=== PATIENT | male | born 1990 | race American Indian/Alaskan Native ===

== ENCOUNTER 2017-01-21 17:46 | Emergency (ER) | payer SELFPAY ==
[2017-01-21 18:40] VITALS: BP 137/85
--- NOTE | 2017-01-21 22:48 | Emergency Department Report ---
HPI - General Chief Complaint: Sore Throat Time Seen by Provider: 01/21/17 22:24 - HPI HPI: Patient here complaining of sore throat since yesterday. He reports that it got worse yesterday. Denies any drooling. He is able to tolerate oral liquids without any difficulties. He said it hurts to swallow. He said he notices tonsils are big. Denies any nausea or vomiting. Denies any fever or chills. Denies any abdominal or chest pain. Denies any shortness of breath. Denies any stridor or wheezing. ED Past Medical Hx - Past Medical History Previous Medical History?: No - Surgical History Past Surgical History?: No - Family History Family history: no significant - Social History Smoking Status: Current Some Day Smoker Substance Use Type: Alcohol - Medications Home Medications: Home Medications Medication Instructions Recorded Confirmed Last Taken Type Amoxicillin [Amoxicillin TAB] 875 mg PO BID #20 tablet 01/22/17 Unknown Rx Ibuprofen [Motrin 800 MG tab] 800 mg PO ONCE PRN #15 tablet 01/22/17 Unknown Rx ED Review of Systems ROS: Stated complaint: SORE THROAT Other details as noted in HPI Comment: All other systems reviewed and negative Constitutional: denies: chills, fever Eyes: denies: eye pain, eye discharge ENT: throat pain. denies: ear pain, congestion Respiratory: no symptoms reported Cardiovascular: denies: chest pain, palpitations, edema, syncope Gastrointestinal: denies: abdominal pain, nausea, vomiting, diarrhea Musculoskeletal: denies: back pain, arthralgia Skin: denies: rash Neurological: denies: headache Physical Exam - Physical Exam Vital Signs: Vital Signs 01/21/17 18:37 Temperature 98 F Pulse Rate 87 Respiratory 18 Rate Blood Pressure 137/85 O2 Sat by Pulse 100 Oximetry General: This is a 26-year-old male well-nourished well-developed in no acute distress. Physical Exam: Head: Normocephalic atraumatic Mouth: Moist, positive pharyngeal erythema with erythema and enlarged tonsils at 2+. Uvula is midline and oral airway is patent. No facial swelling. No peritonsillar abscesses. No gingival enlargement noted. Nose: Nasal mucosa without congestion or erythema. Clear Drainage. Maxillary and frontal sinuses nontender to palpate Neck: Supple, no C-spine tenderness, no tracheal deviation. Nontender to palpate. Negative adenopathy Ears: Bilateral TMs pearly viramontes. Bilateral EAC without any redness swelling or drainage. Bilateral otitis nontender to palpate Abdomen: Soft, nontender to palpate in all quadrants, normal bowel sounds in all quadrant and negative CVA tenderness bilaterally. Eyes: Bilateral pupils equal and reactive to light, bilateral EOM intact. Bilateral sclera and conjunctiva without injection. Normal accommodation. No nystagmus Lungs: Clear to auscultate bilaterally no rhonchi wheezes or rales. Normal work of breathing extremity; No CCE. +2 pulses. No neurovascular compromise Cardiovascular: S1-S2, regular rate rhythm. No murmurs. Skin: clean Dry and intact no rash no lesions Psych: Normal mood and behavior ED Course Vital Signs 01/21/17 18:37 Temperature 98 F Pulse Rate 87 Respiratory 18 Rate Blood Pressure 137/85 O2 Sat by Pulse 100 Oximetry - Reevaluation(s) Reevaluation #1: 01/22/17 00:32 Patient given Mcdavid 325 mg 1 tablets in emergency room and Motrin 800 mg 1 tablet by mouth for sore throat which he voice help. He is able to tolerate oral liquids without any difficulties. ED Medical Decision Making - Lab Data Strep test is negative and culture pending - Medical Decision Making ED course: Pt here complaining of enlarged tonsils with red throat. Also complaining of a sore throat but it's been going on since yesterday and getting worse. Pt has no physical findings for peritonsillar abscess. He is able to tolerate oral liquids in emergency room without any difficulties. Strep test negative and cultures are pending. I discussed with patient results of stress test and informed him that he has tonsillitis and will be treated with antibiotics. Pt was given Mcdavid 5/325 one tablet along with Motrin 800 mg in emergency room for pain which she says helped his pain down to 2 out of 10. discharged home with his family with prescription for Motrin and amoxicillin Critical care attestation.: If time is entered above; I have spent that time in minutes in the direct care of this critically ill patient, excluding procedure time. ED Disposition Clinical Impression: Tonsillar enlargement, Acute erythematous tonsillitis Pharyngitis Qualifiers: Pharyngitis/tonsillitis etiology: unspecified etiology Qualified Code(s): J02.9 - Acute pharyngitis, unspecified Disposition: DISCHARGED TO HOME OR SELFCARE Is pt being admited?: No Does the pt Need Aspirin: No Condition: Stable Instructions: Tonsillitis (ED), Pharyngitis (ED) Additional Instructions: Please take medication as prescribed. Follow-up with ear nose and throat doctor her that you were referred to a near discharge information paperwork Please drink plenty of fluid. Prescriptions: Amoxicillin [Amoxicillin TAB] 875 mg PO BID #20 tablet Ibuprofen [Motrin 800 MG tab] 800 mg PO ONCE PRN #15 tablet PRN Reason: Sore Throat Referrals: KATIANA MARCELO MD [Staff Physician] - 2-3 Days [facility] [Outside] - 2-3 Days Forms: Accompanied Note, Work/School Release Form(ED)
[2017-01-21] MEDS ORDERED: NORCO 5/325 PO ONE (22:54)
[2017-01-21] MEDS ORDERED: MOTRIN PO ONE (22:54)
== END 2017-01-22 00:50 | disposition home or self-care (01) ==
LOC: ED 17:46
DX: J03.90 Acute tonsillitis, unspecified (principal); F17.200 Nicotine dependence, unspecified, uncomplicated; Z79.1 Long term (current) use of non-steroidal anti-inflammatories (NSAID); Z79.2 Long term (current) use of antibiotics
CPT/HCPCS: 87116; 87430; 99282

== ENCOUNTER 2022-03-06 22:09 | Emergency (ER) | payer SELFPAY ==
[2022-03-07 02:01] LABS: Basophils # (Auto) 0.1 K/mm3 (0.0-0.1); Basophils % (Auto) 1.2 % (0.0-1.8); Eosinophils # (Auto) 0.1 K/mm3 (0.0-0.4); Eosinophils % (Auto) 2.1 % (0.0-4.3); Hematocrit 44.8 % (35.5-45.6); Hemoglobin 15.2 gm/dl (11.8-15.2); Lymphocytes # (Auto) 2.6 K/mm3 (1.2-5.4); Lymphocytes % (Auto) 41.4 % (13.4-35.0); Mean Corpuscular HGB Conc 34 % (32-34); Mean Corpuscular Volume 90 fl (84-94); Monocytes # (Auto) 0.4 K/mm3 (0.0-0.8); Platelet Count 197 K/mm3 (140-440); Red Cell Distribution Width 13.5 % (13.2-15.2)
[2022-03-07 02:16] LABS: Alanine Aminotransferase 53 units/L (7-56); Albumin 4.2 g/dL (3.9-5); BUN/Creatinine Ratio 17; Blood Urea Nitrogen 15 mg/dL (9-20); Hemolysis Index 26
--- NOTE | 2022-03-07 03:40 | Emergency Department Report ---
ED Abdominal Pain HPI - General Chief Complaint: Abdominal Pain Stated Complaint: LEFT SIDE PAIN Time Seen by Provider: 03/07/22 00:58 Source: patient Mode of arrival: Ambulatory Limitations: No Limitations - History of Present Illness Initial Comments: Is a 31-year-old male who presents with bilateral flank pain x3 days. Patient denies fevers or chills no nausea or vomiting. Pain radiates to suprapubic. Patient does endorse urinary frequency urgency and dysuria. There is no hematuria. Patient denies discharge. No concern for STI. MD Complaint: flank pain - Related Data Previous Rx's Medication Instructions Recorded Last Taken Type Amoxicillin [Amoxicillin TAB] 875 mg PO BID #20 tablet 01/22/17 Unknown Rx Ibuprofen [Motrin 800 MG tab] 800 mg PO ONCE PRN #15 tablet 01/22/17 Unknown Rx Allergies Allergy/AdvReac Type Severity Reaction Status Date / Time No Known Allergies Allergy Unverified 01/21/17 22:48 ED Review of Systems ROS: Stated complaint: LEFT SIDE PAIN Other details as noted in HPI Constitutional: denies: chills, fever Eyes: denies: eye pain, eye discharge, vision change ENT: denies: ear pain, throat pain Respiratory: denies: cough, shortness of breath, wheezing Cardiovascular: as per HPI Endocrine: no symptoms reported Gastrointestinal: denies: abdominal pain, nausea, vomiting, diarrhea Genitourinary: urgency, dysuria, frequency. denies: hematuria, discharge, t esticular pain, testicular mass Musculoskeletal: denies: back pain, joint swelling, arthralgia Skin: denies: rash, lesions Neurological: denies: headache, weakness, paresthesias Psychiatric: denies: anxiety, depression Hematological/Lymphatic: denies: easy bleeding, easy bruising ED Past Medical Hx - Social History Smoking Status: Current Some Day Smoker Substance Use Type: Alcohol - Medications Home Medications: Home Medications Medication Instructions Recorded Confirmed Last Taken Type Amoxicillin [Amoxicillin TAB] 875 mg PO BID #20 tablet 01/22/17 Unknown Rx Ibuprofen [Motrin 800 MG tab] 800 mg PO ONCE PRN #15 tablet 01/22/17 Unknown Rx ED Physical Exam - General Limitations: No Limitations General appearance: alert, in no apparent distress - Head Head exam: Present: atraumatic, normocephalic - Eye Eye exam: Present: normal appearance, EOMI Pupils: Present: normal accommodation - ENT ENT exam: Present: mucous membranes moist - Neck Neck exam: Present: normal inspection, full ROM. Absent: tenderness, lymphadenopathy - Respiratory Respiratory exam: Present: normal lung sounds bilaterally. Absent: respiratory distress - Cardiovascular Cardiovascular Exam: Present: regular rate, normal rhythm, normal heart sounds. Absent: systolic murmur, diastolic murmur, rubs, gallop - GI/Abdominal GI/Abdominal exam: Present: soft, tenderness (Bilateral flank), normal bowel sounds. Absent: distended, guarding, rebound, rigid, bruit, hernia - Rectal Rectal exam: Present: deferred - Extremities Exam Extremities exam: Present: normal inspection, full ROM, normal capillary refill - Back Exam Back exam: Present: normal inspection, full ROM, CVA tenderness (R), CVA tenderness (L) - Neurological Exam Neurological exam: Present: alert, oriented X3, CN II-XII intact, normal gait - Psychiatric Psychiatric exam: Present: normal affect, normal mood - Skin Skin exam: Present: warm, dry, intact, normal color. Absent: rash ED Course Vital Signs 03/06/22 22:43 Temperature 98.9 F Pulse Rate 97 H Respiratory 18 Rate Blood Pressure 143/89 [Right] O2 Sat by Pulse 96 Oximetry ED Medical Decision Making - Lab Data Result diagrams: 03/07/22 01:09 03/07/22 01:09 Labs 03/07/22 03/07/22 03/07/22 01:09 01:09 Unknown WBC 6.3 RBC 5.00 Hgb 15.2 Hct 44.8 MCV 90 MCH 31 MCHC 34 RDW 13.5 Plt Count 197 Lymph % (Auto) 41.4 H Wilkinson % (Auto) 7.0 Eos % (Auto) 2.1 Baso % (Auto) 1.2 Lymph # (Auto) 2.6 Wilkinson # (Auto) 0.4 Eos # (Auto) 0.1 Baso # (Auto) 0.1 Seg Neutrophils % 48.3 Seg Neutrophils # 3.1 Sodium 138 Potassium 4.0 Chloride 104.2 Carbon Dioxide 19 L Anion Gap 19 BUN 15 Creatinine 0.9 Estimated GFR > 60 BUN/Creatinine Ratio 17 Glucose 205 H Calcium 9.0 Total Bilirubin 0.20 AST 31 ALT 53 Alkaline Phosphatase 69 Total Protein 6.7 Albumin 4.2 Albumin/Globulin Ratio 1.7 Urine Color Yellow Urine Turbidity Clear Urine pH 6.0 Ur Specific [place] 1.024 Urine Protein <15 mg/dl Urine Glucose (UA) Neg Urine Ketones Neg Urine Blood Neg Urine Nitrite Neg Urine Bilirubin Neg Urine Urobilinogen < 2.0 Ur Leukocyte Esterase Neg Urine WBC (Auto) 1.0 Urine RBC (Auto) < 1.0 Urine Mucus Few - Medical Decision Making Labs noted for glucose 205 mg/dL, UA is normal, CBC is normal. Patient is voiding without difficulty at this time there is no fevers no chills no back pain no dysuria hematuria. Plan follow-up primary care doctor. Return to emergency should symptoms worsen. Critical care attestation.: If time is entered above; I have spent that time in minutes in the direct care of this critically ill patient, excluding procedure time. ED Disposition Clinical Impression: Flank pain, Hyperglycemia Disposition: 01 HOME / SELF CARE / HOMELESS Is pt being admited?: No Does the pt Need Aspirin: No Condition: Stable Instructions: Preventing Type 2 Diabetes Mellitus, Flank Pain, Adult, [id number] Additional Instructions: Follow-up with your doctor in 2 to 3 days. Return to emergency department should symptoms worsen. Referrals: TERE NEWMAN MD [Staff Physician] - 3-5 Days Forms: Work/School Release Form(ED) Time of Disposition: 03:58
[2022-03-07 03:49] LABS: Bilirubin,Urine NEG (Negative); Blood,Urine NEG (Negative); Color,Urine Yellow (Yellow); Mucus,Urine FEW /HPF; Protein,Urine <15 mg/dL mg/dL (Negative); RBC,Urine < 1.0 /HPF (0.0-6.0); Urobilinogen,Urine < 2.0 mg/dL (<2.0)
[2022-03-07 04:10] VITALS: BP 142/88
== END 2022-03-07 04:10 | disposition home or self-care (01) ==
LOC: ED 22:09
DX: R73.9 Hyperglycemia, unspecified (principal); R10.32 Left lower quadrant pain; F17.200 Nicotine dependence, unspecified, uncomplicated; Z72.89 Other problems related to lifestyle
CPT/HCPCS: 36415; 80053; 81001; 85025; 99283